=== PATIENT | female | born 2000 | race Caucasian/White ===

== ENCOUNTER → 2021-12-01 15:31 | Outpatient (CLI) | payer BC, SELFPAY ==
[2021-12-01 17:08] LABS: HCG Qualitative, Serum Negative (Negative)
== END ==
PROVIDERS: PCP Nurse Practitioner Family; Visit Provider Nurse Practitioner Family
DX: N92.6 Irregular menstruation, unspecified (principal)
CPT/HCPCS: 36415; 84703

== ENCOUNTER 2023-02-23 08:04 | Emergency (ER) | payer BC, SELFPAY ==
[2023-02-23 08:20] VITALS: BP 123/76; PULSE 91; RESP 19; TEMP 37; O2SAT 99; BMI 28.7
--- NOTE | 2023-02-23 08:37 | EXP.UTC ---
Discharge Plan Disposition Patient Disposition: Home, Self-Care Condition: Good Prescriptions Prescriptions: New amoxicillin 500 mg capsule 500 mg PO BID 10 Days Qty: 20 0RF fluconazole 150 mg tablet 150 mg PO ONCE 1 Days Qty: 1 0RF No Action glycopyrrolate 1 mg tablet 1 mg PO DAILY Referrals Follow up/Referrals: Nikia Hess APRN [Primary Care Provider] - See instructions Activity Restrictions/Add. Instructions Additional Instructions/Restrictions: *Monitor Temp, Over the counter Motrin or Tylenol as directed/as needed Tylenol every 4 hours and Motrin every 6 hours (as long as your family doctor has told you that you can take it) for fever or pain. and straight to ER if unable to lower temp less than 101.0 after medication given *Warm salt water gargles may help to soothe the throat *Throat Lozenges? *Warm fluids like tea with honey may help to soothe the throat? *Sleep elevated *Humidifier/Vaporizer *If you did not take Penicillin shot or was unable to, start taking antibiotic immediately and make sure that you take it for the FULL length of time although you should start to feel better in 24-48 hours *change toothbrush and toothpaste 24-48 hours after starting to take antibiotics so you do not reinfect yourself Monitor Temp. Tylenol and/or Ibuprofen as needed. ER if fever is no less than 101 despite alternating Tylenol and Ibuprofen * Encourage fluids, water, Gatorade, powerade, pedialyte if /toddler/or child *Cold fluids, popsicles and ice cream may feel good on his throat Follow up IMMEDIATELY for new or worsening symptoms or no Noticeable improvement over the next 48-72 hours. 911 for difficulty breathing or swallowing Clinical Impressions Clinical Impression: Strep throat Stand Alone Forms Stand Alone Forms: Work/School Release Instructions Patient Instructions: Strep Throat, DI for Strep Throat, Amoxicillin Discharge ED Provider: [place] Griggs [facility] [place] General Stated complaint: Sore throat, Mode of Arrival: Ambulatory Source of Information: Patient Limitations: No Limitations Time Seen by Provider: 02/23/23 08:37 Description of Symptoms (Recalled from Triage Doc. by RN): PATIENT C/O SORE THROAT X 2 DAYS HEENT Symptoms (Recalled from RN notes): Yes Resp Symptoms (Recalled from RN notes): No Skin Symptoms (Recalled from RN notes): No MS Symptoms (Recalled from RN notes): No Functional Status (Recalled from RN notes): WNL History of Present Illness Provider Complaint: Patient states that she has been having sore throat for the last couple of days and continued to get worse States that she was around her boss that thinks she had strep throat Related Data Home Medications Medication Instructions Recorded Confirmed glycopyrrolate 1 mg tablet 1 mg PO DAILY 09/18/22 02/23/23 Previous Rx's Medication Instructions Recorded amoxicillin 500 mg capsule 500 mg PO BID 10 days #20 caps 02/23/23 fluconazole 150 mg tablet 150 mg PO ONCE 1 day #1 tab 02/23/23 Allergies Allergy/AdvReac Type Severity Reaction Status Date / Time No Known Allergies Allergy Verified 01/16/23 08:10 Worker's Comp Is this a Worker's Comp case?: [facility]: The information contained in this section may have been updated after the patient was seen, as this information can be updated by other users. Medical History (Updated 02/23/23 @ 08:46 by Sara Griggs APRN) Anxiety Asthma Depression Migraine Urinary tract infection Surgical History History of colonoscopy Family History Other Anemia Cancer Diabetes FHx: mental illness Social History Smoking Status: Never smoker alcohol intake: current substance use type: denies use current occupational st
[2023-02-23 08:48] VITALS: BP 123/76; PULSE 91; RESP 19; TEMP 37; O2SAT 99
[2023-02-23 08:48] LABS: UTC Strep Screen (Rapid) Positive (Negative)
== END 2023-02-23 08:53 | disposition home or self-care (01) ==
PROVIDERS: Emergency Provider Nurse Practitioner; PCP Nurse Practitioner Family
DX: J02.0 Streptococcal pharyngitis (principal); R07.0 Pain in throat; J45.909 Unspecified asthma, uncomplicated
CPT/HCPCS: 87880; 99204; 99212; G0463

== ENCOUNTER 2023-05-29 06:46 | Outpatient (CLI) | payer BC, SELFPAY | END 2023-05-29 23:59 | LOC: LAB.DROPOF 06-04 06:47 | PROVIDERS: PCP Nurse Practitioner Family; Visit Provider Nurse Practitioner Family | DX: R30.0 Dysuria (principal); B96.89 Other specified bacterial agents as the cause of diseases classified elsewhere; Z16.12 Extended spectrum beta lactamase (ESBL) resistance | CPT/HCPCS: 87086 ==

== ENCOUNTER 2023-05-29 19:42 | Outpatient (CLI) | payer BC, SELFPAY ==
[2023-05-29 17:16] LABS: Basophils % 0.3 % (0.1-2.0); Eosinophils # 0.1 K/mm3 (0.0-0.4); Eosinophils % 0.7 % (0.1-12.0); Hematocrit 44.2 % (37.0-47.0); Hemoglobin 14.9 g/dL (12.2-16.2); Lymphocytes # 2.7 K/mm3 (0.7-4.5); Lymphocytes % 41.3 % (10-50); Mean Corpuscular HGB Conc 33.6 g/dL (31.8-35.4); Mean Corpuscular Hemoglobin 31.2 pg (27.0-31.2); Mean Corpuscular Volume 92.9 fl (81-99); Mean Platelet Volume 9.3 fl (7.4-10.4); Monocytes # 0.3 K/mm3 (0.1-1.0); Monocytes % 4.9 % (1.7-9.3); Neutrophils # 3.4 K/mm3 (1.8-7.8); Neutrophils % 52.8 % (37.0-80.0); Platelet Count 291 K/mm3 (142-424); Red Blood Count 4.76 M/mm3 (4.20-5.40); Red Cell Distribution Width 12.8 % (11.5-17.5); White Blood Count 6.5 K/mm3 (4.8-10.8)
[2023-05-29 17:54] LABS: Thyroid Stimulating Hormone 0.94 uIU/mL (0.465-4.68)
[2023-05-29 18:13] LABS: Vitamin B12 613 pg/mL (239-931)
[2023-05-29 20:19] LABS: Ferritin 11.5 ng/ml (6.24-137)
== END 2023-05-29 23:59 ==
LOC: LAB.DROPOF 19:42
PROVIDERS: PCP Nurse Practitioner Family; Visit Provider Nurse Practitioner Family
DX: E61.1 Iron deficiency (principal); Z79.899 Other long term (current) drug therapy
CPT/HCPCS: 82607; 82728; 84443; 85025

== ENCOUNTER 2023-06-25 17:01 | Outpatient (CLI) | payer BC, SELFPAY | END 2023-06-25 23:59 | LOC: LAB.DROPOF 17:02 | PROVIDERS: PCP Nurse Practitioner Family; Visit Provider Nurse Practitioner Family | DX: N39.0 Urinary tract infection, site not specified (principal); B96.89 Other specified bacterial agents as the cause of diseases classified elsewhere; R35.0 Frequency of micturition | CPT/HCPCS: 87086 ==

== ENCOUNTER 2024-02-18 14:27 | Outpatient (CLI) | payer BC, SELFPAY | END 2024-02-18 23:59 | disposition home or self-care (01) | LOC: LAB.DROPOF 02-19 09:08 | PROVIDERS: PCP Nurse Practitioner Family; Visit Provider Nurse Practitioner Family | DX: N39.0 Urinary tract infection, site not specified (principal) | CPT/HCPCS: 87086 ==

== ENCOUNTER 2024-07-14 16:04 | Outpatient (CLI) | payer BC, SELFPAY | END 2024-07-14 23:59 | disposition home or self-care (01) | LOC: LAB.DROPOF 07-15 16:04 | PROVIDERS: PCP Nurse Practitioner Family; Visit Provider Nurse Practitioner Family | DX: N39.0 Urinary tract infection, site not specified (principal) | CPT/HCPCS: 87086 ==